=== PATIENT | female | born 1960 | race Two or more races ===

== ENCOUNTER 2018-12-20 19:39 | Emergency (ER) | payer MEDICARE ==
[~2018-12-20] VITALS: Ht 160 cm; Wt 66.7 kg
--- NOTE | 2018-12-20 20:00 | NUR ---
Patient provided cold compress per ER MD instruction. No blistering or redness is noted to the affected area upon evaluation.
--- NOTE | 2018-12-20 20:15 | NUR ---
Patient discharged to home in stable conditon. Written and verbal after care instructions given. Patient verbalizes understanding of instructions. Ambulated from ER with stable gait. All belongings with patient.
[2018-12-20 20:16] VITALS: BP 131/87
== END 2018-12-20 20:17 | disposition home or self-care (01) ==
LOC: ER 19:41
DX: T20.10XA Burn of first degree of head, face, and neck, unspecified site, initial encounter (principal); T21.11XA Burn of first degree of chest wall, initial encounter; Z88.8 Allergy status to other drugs, medicaments and biological substances; X11.8XXA Contact with other hot tap-water, initial encounter; Y93.89 Activity, other specified; Y92.89 Other specified places as the place of occurrence of the external cause; Y99.8 Other external cause status
CPT/HCPCS: A4663

== ENCOUNTER 2024-08-10 22:41 | Emergency (ER) | payer MEDICARE ==
[~2024-08-10] VITALS: Ht 160 cm; Wt 65.8 kg
[2024-08-10 23:28] VITALS: BP 102/45; O2SAT 99
== END 2024-08-10 23:28 | disposition home or self-care (01) ==
LOC: ER 22:51
DX: T83.098A Other mechanical complication of other urinary catheter, initial encounter (principal); Z85.3 Personal history of malignant neoplasm of breast; Z86.79 Personal history of other diseases of the circulatory system; Z88.8 Allergy status to other drugs, medicaments and biological substances; Y84.8 Other medical procedures as the cause of abnormal reaction of the patient, or of later complication, without mention of misadventure at the time of the procedure; Y92.89 Other specified places as the place of occurrence of the external cause
CPT/HCPCS: A4606; A4663